=== PATIENT | male | born 1950 | race Two or more races ===

== ENCOUNTER 2022-02-14 09:55 | Emergency (ER) | payer MEDICARE, SELFPAY ==
--- NOTE | ~2022-02-14 | XR_ITS ---
XR chest 2V 02/14/2022 12:05 Indication: COPD. Cough and chest pain. Procedure: 2 view chest Comparison: No prior studies for comparison. Findings: There are ill-defined infiltrates of the left mid and lower lung. Elevated left diaphragm. Heart size normal. There is atherosclerosis of the aorta. Right lung is clear. No acute osseous abnor mality. Impression: 1: Infiltrates of the left mid and lower lung which may represent atelectasis/scarring or pneumonia. Reviewed, dictated and finalized at location A. ING CHEF Impression: 1: Infiltrates of the left mid and lower lung which may represent atelectasis/s carring or pneumonia.
[2022-02-14 10:10] VITALS: BP 127/83; PULSE 98; RESP 16; TEMP 36.1; O2SAT 97
--- NOTE | 2022-02-14 12:23 | ED.URI ---
HPI - URI/Sore Throat General Chief Complaint: Upper Respiratory Infection Stated Complaint: has copd/pain chest trouble breathing Time Seen by Provider: 02/14/22 12:25 Source: patient, family, RN notes reviewed and old records reviewed Mode of arrival: ambulatory Limitations: no limitations History of Present Illness HPI Narrative: 71-year-old male who presents to [facility] with complaints of cough with expectoration of yellow and mckeon thick sputum for the past 2 weeks with increased shortness of breathe and cough for the past 3-4 days. Patient has history of COPD and is on oxygen at 2 L per nasal cannula continuously. Patient and report that patient had pneumonia the end of December the first part of January. MD elicited complaint: cough, nasal congestion and other (chest congestion,increased dyspnea) Pertinent past history: pneumonia and COPD Onset (ago): day(s) (increased symptoms past 3-4 days) Treatments prior to arrival: acetaminophen and other (Mucinex and inhaler regime) Related Data Home Medications Medication Instructions Recorded Confirmed albuterol sulfate 90 mcg/actuation 2 inh inhalation Q4-6H PRN 02/14/22 02/14/22 aerosol inhaler Shortness Of Breath Or Wheezing atorvastatin 80 mg tablet 80 mg PO DAILY 02/14/22 02/14/22 ezetimibe 10 mg tablet 5 mg PO DAILY 02/14/22 02/14/22 fluticasone fur. 100 mcg-umeclid ea inhalation DAILY 02/14/22 62.5 mcg-vilant 25 mcg inhalat.powder (Trelegy Ellipta) ipratropium 0.5 mg-albuterol 3 mg ml inhalation QID 02/14/22 (2.5 mg base)/3 mL nebulization soln Allergies Allergy/AdvReac Type Severity Reaction Status Date / Time No Known Allergies Allergy Verified 02/14/22 12:01 Review of Systems Review of Systems: CONSTITUTIONAL: Denies fever, chills, or sweats. EYES: Denies visual changes, redness, or discharge. ENT: Some rhinorrhea, congestion,no sore throat, or otalgia. CARDIOVASCULAR: Denies chest pain, palpitations, or edema. RESPIRATORY: Reports cough or dyspnea increased expectoration of yellow and mckeon thick phlegm GASTROINTESTINAL: Denies abdominal pain, nausea, vomiting, or diarrhea. GENITOURINARY: Denies dysuria or hematuria. SKIN: Denies rash or itching. MUSCULOSKELETAL: Denies back pain, joint pain, or myalgia. NEUROLOGIC: Denies headache, numbness, or weakness. PSYCHIATRIC: Denies anxiety or depression. All systems reviewed & are unremarkable except as noted in HPI and below PMFSH Past Medical History Medical History (Updated 02/15/22 @ 14:38 by Jade Grider NP) COPD (chronic obstructive pulmonary disease) Elevated cholesterol Social History Social History (Updated 02/15/22 @ 14:46 by Jade Grider NP) Smoking status: Former smoker Gender identity (if verbalized by the patient): Male Comments At time of signature, agree with nursing past medical, surgical, social and family history. There is no relevant family history pertinent to the presenting complaint Exam Narrative: GENERAL: Chronic ill-appearing, well-nourished, and in no acute distress. HEAD: Normocephalic, atraumatic. EYES: PERRLA and EOMI. ENT: Nares clear, clear rhinorrhea no epistaxis. Mucous membranes moist.TM's normal with some wax noted in canals, throat pink with no swelling or exudates. NECK: Supple.no lymphadenopathy CHEST: Decreased to auscultation. No respiratory distress.cough with SAO2 97% on room air HEART: Regular rate and rhythm. No murmur heard. Normal peripheral pulses. ABDOMEN: Soft, nontender, nondistended, normal active bowel sounds. EXTREMITIES: Normal range of motion. No edema. SKIN: Warm, dry, no rash. NEURO: No focal deficits. Alert and oriented x3. Course Course Emergency Course: Patient is aware of diagnosis, understands and agrees to treatment plan.? Anticipatory guidance given.? Patient agrees to follow-up as directed and is aware of reasons to seek care at the emergency department. Portions of this record may have been create
== END 2022-02-14 12:50 | disposition home or self-care (01) ==
PROVIDERS: Emergency Provider Registered Nurse; PCP Physician Assistant
DX: J18.1 Lobar pneumonia, unspecified organism (principal); F44.9 Dissociative and conversion disorder, unspecified; E78.00 Pure hypercholesterolemia, unspecified; Z87.891 Personal history of nicotine dependence
CPT/HCPCS: 71046; 99213; G0463